=== PATIENT | male | born 1985 | race Caucasian/White ===

== ENCOUNTER 2016-11-02 18:05 | Emergency (ER) | payer OTHER ==
[2016-11-02] MEDS ORDERED: ONDANSETRON 4 MG/2 ML VIAL IVP ONE (18:12)
[2016-11-02] MEDS ORDERED: ONDANSETRON 4 MG/2 ML VIAL ONE (18:13)
[2016-11-02] MEDS ORDERED: NS 1,000 ML IV ONE (18:17)
--- NOTE | 2016-11-02 18:22 | EDPHY ---
H & P Smoking Status: Current some day smoker Time Seen by Provider: 11/02/16 18:10 HPI/ROS: CHIEF COMPLAINT: Alcohol intoxication HISTORY OF PRESENT ILLNESS: 31-year-old male presents to the emergency department by ambulance with acute alcohol intoxication. [facility] and his sister who accompanies him states that he "just drank too much." The patient does not have any medical problems. He has not drank alcohol for several months. There is no reported trauma. He began vomiting approximately 1 hour ago and EMS was contacted and he was transported to the emergency department for evaluation. REVIEW OF SYSTEMS: Unobtainable (Cassidy Sabillon) Past Medical/Surgical History: No known medical history per his sister (Cassidy Sabillon) Social History: Single (Cassidy Sabillon) Physical Exam: General Appearance: Patient is sleeping. He smells strongly of alcohol. He withdrawals to painful stimuli and will open his eyes when his name is called. His sister is at bedside. He has no visible signs of trauma to his head. Eyes: Pupils equal and round. Extraocular motions are all intact. ENT: Mouth: Mucous membranes moist. Respiratory: No wheezing, rhonchi, or rales, lungs are clear to auscultation. Cardiovascular: Regular rate and rhythm. Gastrointestinal: Abdomen is soft and nontender, no masses, no rebound or guarding, bowel sounds normal. Neurological: Uncooperative, cannot determine. Skin: Warm and dry, no rashes. Musculoskeletal: Nontender to palpate along the cervical, thoracic or lumbar spine. Neck is supple. Extremities: Full range of motion and no peripheral edema. Psychiatric: No agitation (Cassidy Sabillon) Constitutional: Initial Vital Signs Temperature (C) 35.7 C L 11/02/16 18:05 Heart Rate 68 11/02/16 18:05 Respiratory Rate 24 H 11/02/16 18:05 Blood Pressure 113/76 11/02/16 18:05 O2 Sat (%) 94 11/02/16 18:05 O2 Delivery Mode Room Air O2 (L/minute) 2 Allergies/Adverse Reactions: No Known Allergies Allergy (Unverified 11/02/16 18:13) Home Medications: Medication Instructions Recorded NK [No Known Home Meds] 11/02/16 Medical Decision Making ED Course/Re-evaluation: 31-year-old male presents to the emergency department by ambulance with acute alcohol intoxication. His sister states that he has no other medical problems. She knows that he drinks several beers this evening. He began vomiting was transferred to the emergency department for evaluation. The patient is obtunded. He does have a gag reflex is present. He did vomit in the emergency department. He was given 4 mg of Zofran IV. He was also given IV normal saline. When the patient is sober, he will discharged with a sober libertarian or to the [facility]. (Cassidy Sabillon) 7:30 p.m.-this patient was seen and examined by me. He remains obtunded secondary to excessive alcohol use. Chest is clear to auscultation, Cardiovascular regular rhythm and rate, neuro-groans to sternal rub. 9:15 p.m.-alert, unable to hold a conversation, seems confused. Denies SANZ or head injury. 10:15 p.m.-patient's family is here and states that he is acting appropriately. He has slight nausea, but otherwise feels ready to go home. Able to walk with a steady gait. (Thais Burns) Differential Diagnosis: Altered mental status including but not limited to hypoglycemia, infectious process, electrolyte abnormality, head injury and intoxicants. (Cassidy Sabillon) - Data Points Laboratory Results: 11/02/16 19:03 POC Hgb 15.6 gm/dL gm/dL (14.5-17.3) POC Hct 46 % % (42.8-50.6) POC Sodium 147 mEq/L H mEq/L (134-144) POC Potassium 3.7 mEq/L mEq/L (3.3-5.0) POC Chloride 107 mEq/L mEq/L (96-108) POC BUN 7 mg/dL mg/dL (7-23) POC Creatinine 1.1 mg/dL mg/dL (0.8-1.5) POC Glucose 100 mg/dL mg/dL (70-100) Medications Given: Discontinued Medications Sodium Chloride (Ns) 1,000 mls @ 0 mls/hr IV ONCE ONE PRN Reason: Wide Open Stop: 11/02/16 18:18 Last Admin: 11/02/16 18:16 Dose: 1,000 mls Ondansetron HCl (Zofran) 4 mg IVP EDNOW ONE Stop: 11/02/16 18:13 Last Admin: 11/02/16 18:16 Dose: 4 mg Point of Care Test Results: 11/02/16 19:03 POC Sodium 147 H POC Potassium 3.7 POC Chloride 107 POC BUN 7 POC Creatinine 1.1 POC Glucose 100 Departure - Departure Disposition: Home, Routine, Self-Care Clinical Impression: Alcoholic intoxication Qualifiers: Complication of substance-induced condition: uncomplicated Qualified Code(s): F10.120 - Alcohol abuse with intoxication, uncomplicated Condition: Good Instructions: Alcohol Intoxication (ED), Ondansetron (By mouth) Additional Instructions: You should not drink alcohol in excess. Take Zofran 1 tablet sublingually every 4 hours as needed for nausea. Referrals: [facility] [Outside] - As per Instructions
[2016-11-02 20:36] VITALS: RESP 14
[2016-11-02] MEDS ORDERED: ONDANSETRON 4MG PREPACK#2 BTL TAKEHOME ONE (22:20)
[2016-11-02 22:25] VITALS: BP 128/78; PULSE 70; TEMP 98.4; O2SAT 94
== END 2016-11-02 22:25 | disposition home or self-care (01) ==
DX: F10.120 Alcohol abuse with intoxication, uncomplicated (principal); F17.200 Nicotine dependence, unspecified, uncomplicated
CPT/HCPCS: 82947-QW; 96374; J2405